=== PATIENT | male | born 1960 | race Caucasian/White ===

== ENCOUNTER → 2021-09-05 | Outpatient (CLI) | payer OTHER ==
[~2021-09-05] MED LIST: ACHYD1T PO; ATOR40TA PO; ATOR40TA70 PO; ESCI-2 PO; LEVO137T6 PO; LEVO150T PO; LORA10TA7 PO; NAPR220T66 PO; NIA500ERT PO; NIAC100045 PO; TEST90SO TOP; VALS80TA31 PO
--- NOTE | 2021-09-05 12:55 | Diagnostic Imaging Report ---
PROCEDURE: MRI left joint lower extremity without contrast. TECHNIQUE: Multiplanar, multisequence non contrast-enhanced MRI of the left lower extremity was accomplished. INDICATION: Chronic left knee pain. Prior scope. EXAMINATION: MRI of the left lower extremity without contrast 09/05/2021 COMPARISONS: None FINDINGS: The extensor mechanism is intact. There is heterogeneous signal throughout the ACL somewhat ill-defined. However, some fibers appear to be intact. Findings could be due to a partial tear or sprain. Correlate with symptoms. The PCL is intact. The lateral collateral ligamentous complex intact. There is mild edema surrounding the MCL suggesting a sprain. There is no discontinuity. There is heterogeneous signal intensity throughout the anterior horn of the lateral meniscus consistent with a tear as it extends to both the tibial and femoral surfaces. Myxoid degeneration is noted within the posterior horn with more focal high signal extending to the tibial and femoral surfaces near the meniscal root consistent with a tear. There is a multidirectional degenerative type tear throughout the posterior horn and body of the medial meniscus. A radial component is noted posteriorly. There is severe loss of cartilage within the medial joint compartment. There is moderate thinning and loss of cartilage in the lateral joint space. There is moderate loss of cartilage over the patellar apex and medial facet. There is a moderate joint effusion. There is a small slitlike Chavez's cyst. Subchondral cystic changes noted throughout the mid aspect of the tibial plateau degenerative in nature with mild edema in the medial femoral condyle and medial tibial plateau likely on a degenerative basis as well. No acute osseous abnormality appreciated. IMPRESSION: 1. Multidirectional tear throughout the posterior horn and body of the medial meniscus. 2. Tears of both the anterior and posterior horns of the lateral meniscus. 3. Findings consistent with an MCL sprain with a possible sprain or partial tear of the ACL. No discontinuity is noted. These findings are age indeterminate with no associated bone bruise pattern to suggest acuity. 4. Tricompartmental degenerative disease. Dictated by: Dictated on workstation # [id number]
== END ==
LOC: RAD 09:48
PROVIDERS: ATTEND Family Medicine Sports Medicine
DX: M23.232 Derangement of other medial meniscus due to old tear or injury, left knee (principal); M22.42 Chondromalacia patellae, left knee; M17.12 Unilateral primary osteoarthritis, left knee
CPT/HCPCS: 73721

== ENCOUNTER 2021-09-24 05:29 | Outpatient (CLI) | payer OTHER ==
[~2021-09-24] VITALS: Ht 177.8 cm; Wt 109.0 kg
[2021-09-29] MEDS ORDERED: METF-397 PO (10:01)
[2021-09-29] MEDS ORDERED: LOSA100T57 PO (10:01)
[2021-09-29] MEDS ORDERED: ROSU5TAB13 PO (10:03)
== END 2021-09-29 10:17 | disposition home or self-care (01) ==
LOC: PREOP 05:29
PROVIDERS: ATTEND Orthopaedic Surgery
DX: Z01.818 Encounter for other preprocedural examination (principal); S83.282A Other tear of lateral meniscus, current injury, left knee, initial encounter; S83.242A Other tear of medial meniscus, current injury, left knee, initial encounter; X58.XXXA Exposure to other specified factors, initial encounter

== ENCOUNTER 2021-10-01 06:03 | Day surgery (SDC) | payer OTHER ==
--- NOTE | 2021-09-24 09:07 | HISTORY AND PHYSICAL ---
DATE OF SERVICE: ADMISSION HISTORY AND PHYSICAL This will be for outpatient left knee arthroscopy on 10/01/2021. HISTORY OF PRESENT ILLNESS: The patient is a 61-year-old gentleman with chronic progressively worsening left knee pain, catching, locking and swelling. He has undergone treatment with injections, which provided only temporary relief of his symptoms. An MRI was ultimately obtained, which revealed medial and lateral meniscus tears as well as loose bodies. Due to functional impairment and failure to improve with conservative measures, the patient elected to proceed with surgical intervention. REVIEW OF SYSTEMS: No chest pain, no shortness of breath, no dysuria. FAMILY HISTORY: Significant for hypertension. PRIMARY CARE PROVIDER: Dr. Sanchez. MEDICATIONS: Niacin, rosuvastatin, metformin, losartan, testosterone, levothyroxine, colchicine. ALLERGIES: BENAZEPRIL AND TRIAMTERENE. SOCIAL HISTORY: The patient is a former tobacco user. Drinks alcohol socially. PAST MEDICAL HISTORY: Significant for thyroid disease, diabetes, hypercholesterolemia and low testosterone. PHYSICAL EXAMINATION: GENERAL: The patient is well-developed, well-nourished, in no acute distress. HEENT: Normocephalic, atraumatic. Pupils are equal, round and reactive to light. Oropharynx is clear. NECK: Supple, no lymphadenopathy. LUNGS: Clear to auscultation bilaterally. HEART: Regular rate and rhythm. ABDOMEN: Soft, nontender, nondistended. EXTREMITIES: The left knee demonstrates moderate effusion, it is tender along his medial and lateral joint lines. He has pain medially with Krystian's. He has no varus or valgus laxity. Negative anterior and posterior drawer. 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 PLAN: Left knee arthroscopy with partial meniscectomies, chondroplasty, loose body removal. The risks, benefits, options, ramifications and recovery have been discussed at length with the patient. He understands and wishes to proceed. Job ID: [id number] DocumentID: [id number] Dictated Date: 09/17/2021 15:37:19 Ict Educator Date: 09/17/2021 15:50:16 Dictated By: RISHI BRADLEY MD
[2021-10-01] VITALS (10 sets, daily range): BP systolic 134–158; BP diastolic 86–97
[~2021-10-01] VITALS: Ht 177.8 cm; Wt 109.0 kg
[~2021-10-01 06:03] MED LIST changes: +LOSA100T57 PO; +METF-397 PO; +ROSU5TAB13 PO
[2021-10-01] MEDS ORDERED: LACTATED RINGERS 1,000 ML IV PRN (06:15)
[2021-10-01] MEDS ORDERED: proPOfol 200 MG/20 ML (DIPRIVAN) VIAL IV ONE (06:55)
[2021-10-01] MEDS ORDERED: ONDANSETRON 4 MG/2 ML (SDV) Z0FRAN ONE (06:55)
[2021-10-01] MEDS ORDERED: SEVOFLURANE (ULTANE) 15 ML INHAL SOLN ONE ×2 (06:55→08:07)
[2021-10-01] MEDS ORDERED: fentaNYL INJ 100 MCG/2 ML AMP ONE (06:55)
[2021-10-01] MEDS ORDERED: LIDOCAINE PF 2% 5 ML (XYLOCAINE) VIAL ONE (06:55)
[2021-10-01] MEDS ORDERED: MIDAZOLAM 2 MG/2 ML (VERSED) VIAL ONE (06:55)
[2021-10-01] MEDS ORDERED: morphine PF (DURAMORPH) 10 MG/10 ML AMP ONE (07:13)
[2021-10-01] MEDS ORDERED: BUPIVACAINE 0.25% 30 ML (SENSORCAINE) VIAL ONE (07:13)
[2021-10-01] MEDS ORDERED: HYDROcodone/APAP 7.5 MG/325 MG (LORTAB, LORCET PLUS) TABLET PO PRN (07:15)
[2021-10-01] MEDS ORDERED: ceFAZolin 2 GM IV Premixed 50 ML ONE (07:22)
--- NOTE | 2021-10-01 07:35 | Progress Note-Pre Operative ---
Pre-Operative Progress Note Date of Available H&P: Oct 01, 2021 Date H&P Reviewed: Oct 01, 2021 Time H&P Reviewed: 07:11 Changes from last HP none Pre-Operative Diagnosis: left knee medial and lateral meniscus tears and chondromalacia RISHI BRADLEY MD Oct 01, 2021 07:35
--- NOTE | 2021-10-01 07:36 | Progress Note-Post Operative ---
Post-Operative Progess Note Surgeon (s)/Generator Operator Straight Bevel Gear (s) Surgeon RISHI BRADLEY MD Generator Operator Straight Bevel Gear: Jhonatan March Pre-Operative Diagnosis left knee medial and lateral meniscus tears and chondromalacia Post-Operative Diagnosis left knee medial meniscus tear and chondromalacia of the medial femoral condyle, medial tibial plateau, patella, and trochlea Procedure & Operative Findings Date of Procedure 10/01/21 Procedure Performed/Findings left knee arthroscopic partial medial meniscectomy and chondroplasty of medial femoral condyle, medial tibial plateau, patella and trochlea Anesthesia Type GETA Estimated Blood Loss Estimated blood loss (mL): minimal Specimens/Packing Specimens Removed none Packing: none RISHI BRADLEY MD Oct 01, 2021 07:36
[2021-10-01] MEDS ORDERED: KETOROLAC 30 MG/ML VIAL ONE (08:07)
[2021-10-01] MEDS ORDERED: ceFAZolin 2 GM IV Premixed 50 ML IV ONE (08:15)
[2021-10-01] MEDS ORDERED: ONDANSETRON 4 MG/2 ML (SDV) Z0FRAN IVP PRN (08:30)
[2021-10-01] MEDS ORDERED: HYDROmorphone 2 MG/ML VIAL (DILAUDID) IV ONE (08:30)
--- NOTE | 2021-10-01 09:53 | Anesthesia-General Post-Op ---
General Patient Condition Mental Status/LOC: Same as Preop Cardiovascular: Satisfactory Nausea/Vomiting: Absent Respiratory: Satisfactory Pain: Controlled Complications: Absent Post Op Complications Complications None Follow Up Care/Instructions Patient Instructions None needed. Anesthesia/Patient Condition Patient Condition Patient is doing well, no complaints, stable vital signs, no apparent adverse anesthesia problems. No complications reported per nursing. D/C home per [facility] [place] Criteria: Yes MARÍA ELENA HILL CRNA Oct 01, 2021 09:53
--- NOTE | 2021-10-01 12:53 | OPERATIVE REPORT ---
DATE OF SERVICE: 10/01/2021 PREOPERATIVE DIAGNOSES: 1. Left knee medial meniscus tear. 2. Left knee chondromalacia of the medial femoral condyle. 3. Left knee chondromalacia of the patella. POSTOPERATIVE DIAGNOSES: 1. Left knee medial meniscus tear. 2. Left knee chondromalacia of the medial femoral condyle. 3. Left knee chondromalacia of the medial tibial plateau. 4. Left knee chondromalacia of patella. 5. Left knee chondromalacia of the trochlea. PROCEDURES: 1. Left knee arthroscopic partial medial meniscectomy. 2. Left knee arthroscopic chondroplasty of the medial femoral condyle. 3. Left knee arthroscopic chondroplasty of the medial tibial plateau. 4. Left knee arthroscopic chondroplasty of the patella. 5. Left knee arthroscopic chondroplasty of the trochlea. SURGEON: Hiram Bradley MD BAR POINTER: Jhonatan March, who assisted throughout the procedure and closed the incisions. ANESTHESIA: General endotracheal by Joel Fuentes CRNA. TOURNIQUET TIME: Nonfocal. ESTIMATED BLOOD LOSS: Minimal. DRAINS: None. COMPLICATIONS: None. POSTOPERATIVE PLAN: Routine arthroscopy protocol. The patient was transferred to the recovery room awake and in stable condition. STATEMENT OF MEDICAL NECESSITY: The patient is a 61-year-old gentleman with complaints of left knee pain, catching, locking and swelling. He is tender along his medial joint line. He underwent an MRI, which revealed chondral changes throughout his medial compartment as well as medial meniscus tear. Due to functional impairment and failure to improve with conservative measures, the patient elected to proceed with surgical intervention. Examination under anesthesia revealed range of motion of 0/0/130 with negative Cristal, negative anterior and posterior drawer. No varus valgus laxity, negative pivot shift. ARTHROSCOPIC FINDINGS: The patella demonstrated grade II chondral flaps diffusely centrally in a 15 x 15 area. The trochlea demonstrated diffuse grade II chondral changes superiorly in a 15 x 15 area. The medial and lateral gutters were clear. The ACL and PCL were intact. The lateral compartment demonstrated grade I chondral softening of the tibial plateau with no unstable chondral flaps and no meniscal pathology. The medial compartment demonstrated complex tear of the posterior horn of the medial meniscus with grade IV chondral flaps posteriorly over the tibial plateau in an 8 x 8 area and an adjacent 8 x 8 area over the femoral condyle with surrounding grade III chondral flaps in a 10 x 10 area on both the tibial plateau and femoral condyle. DESCRIPTION OF PROCEDURE: After risks and benefits of the procedure were discussed and questions were answered, informed consent was signed and placed on chart, the operative site was confirmed in the preoperative holding area initialed by the surgeon. The patient was then transferred to the operating room and after adequate levels of general endotracheal anesthetic were obtained, a timeout was called, confirming the operative site. The left lower extremity was prepped and draped in the usual sterile fashion. The knee joint was injected with 60 mL of fluid and standard inferolateral portal was placed . Under direct visualization, inferior medial portal was created. The menisci and cruciates carefully probed with the above findings noted. Then, stable chondral flaps on the patella and trochlea were debrided with shaver back to a stable edge. Scope was then redirected into the medial compartment where the unstable chondral flaps in the medial femoral condyle and medial tibial plateau were debrided with a shaver back to a stable edge and the posterior horn and body of the medial meniscus were debrided back to stable edges removing approximately one-half of the posterior horn and body of the medial meniscus. The knee was copiously irrigated. Port sites were closed with 4-0 nylon in simple interrupted fashion. Knee was injected with Duramorph. A soft dressing was applied and the patient was transferred to the recovery room awake and in stable condition. Job ID: [id number] DocumentID: [id number] Dictated Date: 10/01/2021 08:27:47 Honey Liquefier Date: 10/01/2021 12:52:48 Dictated By: HIRAM BRADLEY MD
== END 2021-10-01 10:00 ==
LOC: SDC 06:03
PROVIDERS: ATTEND Orthopaedic Surgery
DX: S83.232A Complex tear of medial meniscus, current injury, left knee, initial encounter (principal); M94.262 Chondromalacia, left knee; Z87.891 Personal history of nicotine dependence; G47.33 Obstructive sleep apnea (adult) (pediatric); M23.42 Loose body in knee, left knee
CPT/HCPCS: 82947; 87081

== ENCOUNTER 2022-03-23 12:47 | Outpatient (CLI) | payer OTHER | END 2022-03-23 13:15 | LOC: SLEEP 12:47 | PROVIDERS: ATTEND Family Medicine | DX: G47.33 Obstructive sleep apnea (adult) (pediatric) (principal); I10 Essential (primary) hypertension; R06.83 Snoring | CPT/HCPCS: G0399 ==